=== PATIENT | female | born 1980 | race Caucasian/White ===

== ENCOUNTER 2022-02-25 00:14 | Emergency (ER) | payer BC, SELFPAY ==
[2022-02-25 00:34] VITALS: BP 144/87; PULSE 72; RESP 20; TEMP 35.8; O2SAT 100; BMI 26.2
--- NOTE | 2022-02-25 00:38 | PC.NURSE ---
Pt able to ambulate from triage without diff. SO at BS. t c/o of abd pain stretching to bilateral sides. Pt states she still has a gallbladder.
[2022-02-25] MEDS: FAMOTIDINE 20 MG TABLET PO (02:04)
--- NOTE | 2022-02-25 02:50 | ED.GENADULT ---
HPI - General Adult General Chief complaint: Chest Pain Stated complaint: Abdominal Pain Time Seen by Provider: 02/25/22 01:31 Source: patient Limitations: no limitations History of Present Illness HPI narrative: 11-year-old female presents with significant other because of abdominal pain in the epigastric region. It started at about 9:00 p.m., last meal was about 3 hours prior. She describes it is in he kind of full feeling that radiates up behind the sternum and a little bit wrapping around the bilateral sides of her abdomen. She has these episodes somewhat frequently, a few times per month but never this severe. They do tend to happen in the evenings. She has not tried any antacids or typical GI medications to help with her symptoms. She says that the ache was stronger and constant this evening, prompting her to come to the emergency department. Symptoms started about 2-1/2 hours prior to presentation. Not accompanied by fever, no nausea or vomiting. No diarrhea , but did have loose stools at the start of the episode. Bowels have been moving normally. No blood in her stools. No prior history of colonoscopy or endoscopy. She did recently complete a Z-Raffy for bronchitis, reports symptoms have improved. No prior history of pancreatitis or known gallbladder disease. No alcohol. Unfortunately, the emergency department was quite busy when she checked in it took me over an hour to get to see her. By this time, her symptoms have almost completely resolved. Past medical history is reported as benign, denies any significant long-term health problems. Reported history of intermittent asthma and heart problems. Does not sound like coronary artery disease or prior arrhythmia. She takes no long-term medications, denies any drug allergies. Socially she is a nonsmoker with no significant alcohol intake. No recent pertinent Travel. ROS is notable only for the GI symptoms as above, otherwise denies times 12 systems. Related Data Home Medications Medication Instructions Recorded Confirmed multivitamin 1 tab PO QDAY 08/13/21 02/25/22 ibuprofen 200 mg tablet (Advil) 400 mg PO Q6-8H PRN 02/25/22 02/25/22 Previous Rx's Medication Instructions Recorded albuterol sulfate 90 mcg/actuation 2 puff inhalation Q4-6H PRN 02/16/22 aerosol inhaler (Ventolin HFA) shortness of breath or wheezing #8.5 grams azithromycin 250 mg tablet See Rx Instructions PO .COMPLEX #6 02/16/22 tabs Allergies Allergy/AdvReac Type Severity Reaction Status Date / Time cat dander Allergy Unknown Verified 02/25/22 00:37 house dust Allergy Unknown Verified 02/25/22 00:37 [facility] Medical History Bronchitis Family history of diabetes during Family History Father Colorectal cancer Prostate cancer Paternal Grandfather Diabetes Social History Narrative: Does not drink alcohol Does not use illicit drugs Former smoker Smoking Status: Never smoker Do you use any of these nicotine containing products: None Second hand tobacco smoke exposure: No How often do you have a drink containing alcohol: never AUDIT-C Alcohol total score: 0 Non-prescribed substance use: denies use Little interest or pleasure in doing things: not at all Feeling down, depressed, or hopeless: not at all service: No Exam Const: Vital Signs, click to edit/add: Vital Signs - 24 hr 02/25/22 00:34 Temperature 96.5 F L Pulse Rate [Right Pulse Oximeter] 72 Respiratory Rate 20 Blood Pressure [Ri ght Upper Arm] 144/87 H Pulse Oximetry 100 Oxygen Delivery Me thod Room Air Documenting provider has reviewed patient's vital signs: yes Common normals: no apparent distress General appearance: cooperative, comfortable and well kempt HENMT: Common normals: normocephalic Head and scalp: normocephalic Mouth: oral and palatal mucosa normal Throat: posterior oropharynx normal Eye: Common normals: PERRL and conjunctivae normal Conjunctiva: conjunctiva(e) normal Pupil: PERRL Neck & C-Spine: Common normals: no lymphadenopathy Resp: Common normals: normal respiratory effort, no use of accessory muscles and clear to auscultation bilaterally Effort & inspection: able to speak in complete sentences Auscultation: clear to auscultation bilaterally Cardio: Common normals: regular rate, regular rhythm, S1 normal heart sound, S2 normal heart sound, no murmurs and peripheral pulses 2+ throughout Rate: regular rate Rhythm: regular rhythm Heart sounds: S1 normal and S2 normal Peripheral pulses: pulses 2+ throughout GI: Common normals: Normal to inspection, nondistended, normoactive bowel sounds present, soft to palpation, non-tender, no hepatosplenomegaly and no masses Palpation: soft and no hepatosplenomegaly Neuro: Speech: speech normal Motor exam: no tremor noted and no movement abnormalities noted Psych: Common normals: cooperative, affect normal and activity/motor behavior normal Appearance: well kempt Insight: insight good Judgement: judgment good Skin: Common normals: no rashes or lesions noted General skin exam: no rashes or lesions noted Course Vital Signs Vital signs: Initial Vital Signs Temperature 96.5 F L 02/25/22 00:34 Temperature Source Temporal Artery Scan 02/25/22 00:34 Pulse Rate 72 02/25/22 00:34 Pulse Rhythm 02/25/22 00:34 Respiratory Rate 20 02/25/22 00:34 Blood Pressure 144/87 H 02/25/22 00:34 Blood Pressure Mean 106 02/25/22 00:34 Blood Pressure Position Sitting 02/25/22 00:34 Pulse Oximetry 100 02/25/22 00:34 Oxygen Delivery Method 02/25/22 00:34 Vital Signs Temperature 96.5 F L 02/25/22 00:34 Pulse Rate 72 02/25/22 00:34 Respiratory Rate 20 02/25/22 00:34 Blood Pressure 144/87 H 02/25/22 00:34 Pulse Oximetry 100 02/25/22 00:34 Oxygen Delivery Method 02/25/22 00:34 Temperature 96.5 F L 02/25/22 00:34 Pulse Rate 72 02/25/22 00:34 Respiratory Rate 20 02/25/22 00:34 Blood Pressure 144/87 H 02/25/22 00:34 Pulse Oximetry 100 02/25/22 00:34 Oxygen Delivery Method 02/25/22 00:34 Medical Decision Making MDM Narrative Medical decision making narrative: Discussed differential diagnosis with patient. Suspect gastric reflux, hiatal hernia versus gallbladder disease like biliary dyskinesia and/or gallstones. Less suspicious for cholecystitis since her symptoms have improved so much. I recommended labs to look for any signs of transaminases or bilirubin elevation and pancreatic enzymes. Patient reports since she is feeling so much better she does not really want to wait for labs. We discussed the differential diagnosis and she is interested in pursuing a GERD and or hiatal hernia very. She accepted offer for famotidine. This is dosed 20 mg p.o. 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 If she has persistent symptoms, I would recommend labs, right upper quadrant ultrasound and if this is not revealing a HIDA scan. We discussed dietary changes and how this may be beneficial to help her narrow down her symptoms as well. She declines further workup at this time, and since I do not appreciate any signs of severe disease, this is certainly reasonable. Follow-up with primary care provider for symptoms are not improving in 3-4 days. EKG was performed and is reassuring with normal sinus rhythm per my interpretation normal axis, good R-wave progression, no ST or T-wave abnormalities, rate is 66. Discharge Plan Discharge Clinical Impression: Epigastric abdominal pain Patient Disposition: Home w/ Parent or Adult Condition: Improved Instructions: Epigastric Pain (ED) Additional Instructions: I am glad that the pain improved on its own. I understand that you do not want to stay for labs since you are feeling better, this is reasonable. I have given you a medication called famotidine, a common stomach acid medicine. This is available [id number] and I would like for you to purchase some and take 1 pill once daily, 30 minutes before meal. I would prefer that you take it before your evening meal. Avoid alcohol and all carbonated beverages for the next few weeks. If after taking this medicine for 4 weeks, you do not have any further spells, we can determine that this is likely from your stomach. You can then decide if he would like to stay on the medicine long-term, make the dietary changes that we discussed, or just treat the episodes episodically with Tums and famotidine when they come. This is most likely secondary to acid reflux and or a hiatal hernia. If your symptoms are not improving, I would strongly recommend further workup with her primary care provider and possibly an endoscopy. I had recommended doing labs because this could be a sign of gallstones or gallbladder disease. Since you are not tender, I know that it is not a gallbladder infection. But as we discussed, gallstones and biliary dyskinesia which is a malfunctioning gallbladder are much more common. I would not necessarily see these on ultrasound. Since her pain has resolved, I agree that waiting around several hours to have this done is probably not beneficial to you tonight. If you continue to have episodes that are not relieved by the famotidine, additional labs, ultrasound and or a HIDA scan would be recommended to look more closely at the gallbladder. Activity Level: No Restrictions Discharge Diet: Regular Prescriptions: No Action multivitamin Tablet 1 tab PO QDAY albuterol sulfate [Ventolin HFA] 90 mcg/actuation HFA aerosol inhaler 2 puff inhalation Q4-6H PRN (Reason: shortness of breath or wheezing) Qty: 8.5 0RF azithromycin 250 mg tablet See Rx Instructions PO .COMPLEX Qty: 6 0RF Rx Instructions: For 250 mg dose pack: take 500 mg today (day 1), then 250 mg for 4 days (days 2-5) PO ibuprofen [Advil] 200 mg tablet 400 mg PO Q6-8H PRN Follow Up/Referrals: Jaelyn Bright MD [Primary Care Provider] - Stand Alone Forms: [employer] Info Instructions
== END 2022-02-25 02:10 | disposition home or self-care (01) ==
PROVIDERS: Emergency Provider Family Medicine; PCP Family Medicine
DX: R10.13 Epigastric pain (principal)
CPT/HCPCS: 93005; 99283; 99284; A9270

== ENCOUNTER 2022-04-01 10:02 | Day surgery (SDC) | payer BC, SELFPAY ==
[2022-04-01] VITALS (19 sets, daily range): BP systolic 107–133; BP diastolic 63–81; PULSE 68–100; RESP 14–18; TEMP 36–37.2; O2SAT 94–100; BMI 26.0
--- NOTE | 2022-04-01 10:59 | CRLHL7_ITS ---
For Patients: As a result of the Century Cures Act, medical imaging exams and procedure reports are released immediately into your electronic medical record. You may view this report before your referring provider. If you have questions, please contact your health care provider. INDICATION: Epigastric pain for 1 month. TECHNIQUE: Ultrasound abdomen limited. Sonographic images of the right upper quadrant were obtained using sanchez-scale and color Doppler images. COMPARISON: None. FINDINGS: Liver: Normal in size and echotexture. No suspicious masses. No intrahepatic biliary dilatation. Gallbladder: Large stone at the gallbladder neck, measuring approximately 1 centimeter. Multiple small mobile stones and debris noted. Gallbladder wall thickening is noted measuring up to 4 millimeters. Negative sonographic Resendiz sign. Common bile duct: 3 mm. Pancreas: Unremarkable. Right kidney: Normal in size. Normal echotexture and cortex. No suspicious masses, stones, or hydronephrosis. Vasculature: Proximal abdominal aorta and IVC are unremarkable. IMPRESSION: Approximately 1 centimeter stone at the gallbladder neck. Although small mobile stones and debris within the gallbladder. Mildly thickened wall is noted. Constellation of findings are suspicious for cholecystitis. Correlate with clinical and laboratory findings. Dictated by Shanna Wright MD @ 04/01/2022 12:26:47 PM (Electronically Signed)
[2022-04-01 11:24] LABS: Lactate* 0.5 mmol/L (0.5-1.9)
[2022-04-01 11:30] LABS: Basophils Absolute Auto 0.02 K/uL (0.00-0.30); Basophils Percent Auto 0.2 % (0.0-3.0); Eosinophils Absolute Auto 0.06 K/uL (0.00-0.50); Eosinophils Percent Auto 0.7 % (0.0-7.0); Hematocrit 40.3 % (33.0-51.0); Hemoglobin* 13.9 gm/dL (12.0-16.0); Immature Granulocytes Abs Auto 0.01 K/uL (0.00-0.30); Immature Granulocytes Pct Auto 0.1 %; Lymphocytes Absolute Auto 1.81 K/uL (0.90-2.90); Lymphocytes Percent Auto 20.2 % (20-44); Mean Corpuscular HGB Conc 35 gm/dL (32-36); Mean Corpuscular Hemoglobin 31 pg (26-34); Mean Corpuscular Volume 90 fL (80-100); Monocytes Percent Auto 8.1 % (0.0-11.0); Neutrophils Absolute Auto 6.33 K/uL (1.7-7.0); Neutrophils Percent Auto 70.7 % (42.0-72.0); Platelet Count* 238 K/uL (140-440); RDW Coefficient of Variation % 12.2 % (11.5-15.5); Red Blood Count 4.49 m/uL (4.00-5.20); White Blood Count* 8.96 K/uL (4.50-11.00)
[2022-04-01 11:39] LABS: Slide Review Reflex No
[2022-04-01 11:41] LABS: Appearance Urine Clear (Clear); Bilirubin Urine Negative (Negative); Blood Urine Negative (Negative); Color Urine Yellow (Yellow); Glucose Urine Negative (Negative); Ketones Urine Negative (Negative); Leukocyte Esterase Urine Negative (Negative); Nitrite Urine Negative (Negative); Protein Urine Negative (Negative); Urobilinogen Urine 0.2 (0.2-1.0); pH Urine 5.5 (5.0-8.5)
[2022-04-01 11:49] LABS: Albumin* 4.8 g/dL (3.3-5.0)
[2022-04-01 11:50] LABS: Chloride* 108 mmol/L (96-114); Potassium* 3.8 mmol/L (3.6-5.1); Sodium* 140 mmol/L (135-149)
[2022-04-01 11:52] LABS: Creatinine* 0.5 mg/dL (0.5-1.5); Est. Creatinine Clearance* 118.29; Estimated Glomerular Filt Rate 122 ml/min
[2022-04-01 11:53] LABS: Alanine Aminotransferase* 26 U/L (4-35); Alkaline Phosphatase* 52 U/L (40-150); Aspartate Amino Transferase* 24 U/L (12-35); Bilirubin Direct* 0.1 mg/dL (0.0-0.5); Bilirubin Total* 0.7 mg/dL (0.1-1.5); Blood Urea Nitrogen* 9 mg/dL (5-24); Carbon Dioxide* 25 mmol/L (20-32); Glucose* 93 mg/dL (60-115); Total Protein* 8.1 g/dL (6.0-8.3)
[2022-04-01 11:54] LABS: Calcium* 9.2 mg/dL (8.4-10.6)
[2022-04-01 11:56] LABS: Lipase* 53 U/L (23-300)
[2022-04-01 12:05] LABS: C Reactive Protein* < 0.5 mg/dL (0.5-1.0)
[2022-04-01 12:20] LABS: RBC Urine 0-2 (0-2); Squamous Epithelial Cell Urine Few (None-Few); WBC Urine 0-2 (0-5)
--- NOTE | 2022-04-01 12:57 | ED_ITS ---
HPI - General Adult General Date Seen: 04/01/22 Chief complaint: Abdominal Pain Stated complaint: Abdominal pain Time Seen by Provider: 04/01/22 10:37 Source: patient Mode of arrival: ambulatory Limitations: no limitations History of Present Illness HPI narrative: Patient is a 42-year-old woman who presents for re-evaluation of abdominal pain. She was seen here on February 25 at that time had had some epigastric pain. Pain had resolved, and she elected not to have labs or ultrasound done at that time. She was started on ranitidine. She says that she has been using the ranitidine sporadically when she has symptoms, had thought it had been a little helpful. However, pain has been getting a little more significant. She often notes symptoms between 10 30 and 11:00 a.m. at night, and in the last week she has had some bouts of severe pain, which wake her from sleep. She has to get up and pace around, she often takes a hot shower as the warm water seems to help. She describes the pain as achy and pressure-like, it radiates around both sides and into her back. It is not positional, does not feel any better sitting up versus lying down, does not have a burning quality and she does not describe reflux type symptoms. She has not had any black or bloody stools, has not had any nausea or vomiting. She has developed some diarrhea and past week. She has not had a fever. Pain does not seem directly related to her diet at all, she has tried to rule minimize how much she eats in the evening but it has not seem to make any difference as to whether not she has pain. She had a bad episode of pain last night which resolved. She presented to clinic this morning and was referred here for further evaluation. Right now she has minimal to no pain. Related Data Home Medications Medication Instructions Recorded Confirmed multivitamin 1 tab PO QDAY 08/13/21 04/01/22 ibuprofen 200 mg tablet (Advil) 400 mg PO Q6-8H PRN 02/25/22 04/01/22 famotidine 10 mg tablet (Pepcid AC) 10 mg PO QDAY 04/01/22 04/01/22 Previous Rx's Medication Instructions Recorded albuterol sulfate 90 mcg/actuation 2 puff inhalation Q4-6H PRN 02/16/22 aerosol inhaler (Ventolin HFA) shortness of breath or wheezing #8.5 grams Allergies Allergy/AdvReac Type Severity Reaction Status Date / Time cat dander Allergy Unknown Verified 04/01/22 08:14 house dust Allergy Unknown Verified 04/01/22 08:14 Review of Systems Status of ROS: Reports: 10 or more systems reviewed and unremarkable except as noted in History and below [facility] Medical History Bronchitis Family history of diabetes during Family History (Updated 04/01/22 @ 13:40 by Silvia Tovar MD) Father Colorectal cancer Prostate cancer Paternal Grandfather Diabetes Social History (Updated 04/01/22 @ 13:40 by Silvia Tovar MD) Narrative: Does not drink alcohol Does not use illicit drugs Former smoker 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 In general, an alert, well-appearing patient. Appears comfortable. Head: Normocephalic, atraumatic. Eyes: Pupils are equal reactive. Extraocular movements are full. Conjunctivae are normal. ENT: Mucous membranes are moist. Neck: Supple without lymphadenopathy. Heart: Regular rate and rhythm. No murmur or rub. Lungs: Clear bilaterally. No increased work of breathing, crackles or wheezes. No CVA tenderness. Abdomen: Soft and nondistended, nontender to palpation including in the right upper quadrant. Negative Resendiz sign. Extremities: Well perfused. No edema. No calf tenderness. Pulses intact. Neurologic: Patient is alert and oriented to person and place. Speech is fluent. Face is symmetric. Moves all extremities equally. Affect: Normal. Skin: Warm and dry. Well perfused. Const: Vital Signs, click to edit/add: Vital Signs - 24 hr 04/01/22 10:06 Temperature 98.0 F Pulse Rate [Left P ulse Oximeter] 91 Respiratory Rate 16 Blood Pressure [Ri ght Upper Arm] 124/81 Pulse Oximetry 100 Oxygen Delivery Me thod Room Air Documenting provider has reviewed patient's vital signs: yes Course Course Hospital Course: Following initial evaluation, I looked with the bedside ultrasound, gallbladder wall did appear thickened about 4 mm and she had sludge versus small stones visible in the gallbladder fundus. I ordered a formal ultrasound as well as labs. She declined the need for anything for pain. She had an EKG which by my review showed a normal sinus rhythm, ventricular rate of [address] segment changes. Labs were entirely unremarkable. White count is normal at 9, hemoglobin 13.9, diff normal. Metabolic panel and LFTs are entirely within normal limits. CRP is less than 0.5. Lipase is 53. Urinalysis is negative, 0- 2 red cells and 0-2 white cells. Point of care troponin is 0. Formal radiology read of her right upper quadrant ultrasound shows a stone at the gallbladder neck, small mobile stones and debris in the gallbladder and the mildly thickened wall consistent with cholecystitis. I have discussed her case with Dr. Jeff was on-call for General surgery, she will consult on the patient in the emergency department. Plan is for cholecystectomy today. Vital Signs Vital signs: Initial Vital Signs Temperature 98.0 F 04/01/22 10:06 Temperature Source Temporal Artery Scan 04/01/22 10:06 Pulse Rate 91 04/01/22 10:06 Pulse Rhythm 04/01/22 10:06 Pulse Strength 3+ Normal 04/01/22 10:06 Respiratory Rate 16 04/01/22 10:06 Blood Pressure 124/81 04/01/22 10:06 Blood Pressure Mean 95 04/01/22 10:06 Blood Pressure Position Sitting 04/01/22 10:06 Pulse Oximetry 100 04/01/22 10:06 Oxygen Delivery Method 04/01/22 10:06 Vital Signs Temperature 98.0 F 04/01/22 10:06 Pulse Rate 91 04/01/22 10:06 Respiratory Rate 16 04/01/22 10:06 Blood Pressure 124/81 04/01/22 10:06 Pulse Oximetry 100 04/01/22 10:06 Oxygen Delivery Method 04/01/22 10:06 Temperature 98.0 F 04/01/22 10:06 Pulse Rate 91 04/01/22 10:06 Respiratory Rate 16 04/01/22 10:06 Blood Pressure 124/81 04/01/22 10:06 Pulse Oximetry 100 04/01/22 10:06 Oxygen Delivery Method 04/01/22 10:06 Medical Decision Making Lab Data Labs: Lab Results 04/01/22 04/01/22 04/01/22 Range/Units 11:00 11:00 11:13 WBC (4.50-11.00) K/uL RBC (4.00-5.20) m/uL Hgb (12.0-16.0) gm/dL Hct (33.0-51.0) % MCV (80-100) fL MCH (26-34) pg MCHC (32-36) gm/dL RDW Coeff of Jennifer (11.5-15.5) % Plt Count (140-440) K/uL Neut % (Auto) (42.0-72.0) % Lymph % (Auto) (20-44) % Woodson % (Auto) (0.0-11.0) % Eos % (Auto) (0.0-7.0) % Baso % (Auto) (0.0-3.0) % Neut # (Auto) (1.7-7.0) K/uL Lymph # (Auto) (0.90-2.90) K/uL Woodson # (Auto) (0.00-0.90) K/UL Eos # (Auto) (0.00-0.50) K/uL Baso # (Auto) (0.00-0.30) K/uL Sodium 140 (135-149) mmol/L Potassium 3.8 (3.6-5.1) mmol/L Chloride 108 (96-114) mmol/L Carbon Dioxide 25 (20-32) mmol/L BUN 9 (5-24) mg/dL Creatinine 0.5 (0.5-1.5) mg/dL Estimated Creat Clear 118.29 Estimated GFR 122 ml/min Glucose 93 (60-115) mg/dL Lactate (0.5-1.9) mmol/L Calcium 9.2 (8.4-10.6) mg/dL Total Bilirubin 0.7 (0.1-1.5) mg/dL Direct Bilirubin 0.1 (0.0-0.5) mg/dL AST 24 (12-35) U/L ALT 26 (4-35) U/L Alkaline Phosphatase 52 (40-150) U/L C-Reactive Protein (0.5-1.0) mg/dL Total Protein 8.1 (6.0-8.3) g/dL Albumin 4.8 (3.3-5.0) g/dL Lipase (23-300) U/L Urine Color Yellow (Yellow) Urine Appearance Clear (Clear) Urine pH 5.5 (5.0-8.5) Ur Specific Kathleen 1.010 (1.000-1.030) Urine Protein Negative (Negative) Urine Glucose (UA) Negative (Negative) Urine Ketones Negative (Negative) Urine Blood Negative (Negative) Urine Nitrite Negative (Negative) Urine Bilirubin Negative (Negative) Urine Urobilinogen 0.2 (0.2-1.0) Ur Leukocyte Esterase Negative (Negative) Urine RBC 0-2 (0-2) Urine WBC 0-2 (0-5) Ur Squamous Epith Cells Few (None-Few) Urine Bacteria None (None) SARS-CoV-2 (PCR) (Negative) POC Troponin I 0.00 L (0.01-0.04) ng/ml 04/01/22 04/01/22 04/01/22 Range/Units 11:13 11:13 11:13 WBC 8.96 (4.50-11.00) K/uL RBC 4.49 (4.00-5.20) m/uL Hgb 13.9 (12.0-16.0) gm/dL Hct 40.3 (33.0-51.0) % MCV 90 (80-100) fL MCH 31 (26-34) pg MCHC 35 (32-36) gm/dL RDW Coeff of Jennifer 12.2 (11.5-15.5) % Plt Count 238 (140-440) K/uL Neut % (Auto) 70.7 (42.0-72.0) % Lymph % (Auto) 20.2 (20-44) % Woodson % (Auto) 8.1 (0.0-11.0) % Eos % (Auto) 0.7 (0.0-7.0) % Baso % (Auto) 0.2 (0.0-3.0) % Neut # (Auto) 6.33 (1.7-7.0) K/uL Lymph # (Auto) 1.81 (0.90-2.90) K/uL Woodson # (Auto) 0.70 (0.00-0.90) K/UL Eos # (Auto) 0.06 (0.00-0.50) K/uL Baso # (Auto) 0.02 (0.00-0.30) K/uL Sodium (135-149) mmol/L Potassium (3.6-5.1) mmol/L Chloride (96-114) mmol/L Carbon Dioxide (20-32) mmol/L BUN (5-24) mg/dL Creatinine (0.5-1.5) mg/dL Estimated Creat Clear Estimated GFR ml/min Glucose (60-115) mg/dL Lactate 0.5 (0.5-1.9) mmol/L Calcium (8.4-10.6) mg/dL Total Bilirubin (0.1-1.5) mg/dL Direct Bilirubin (0.0-0.5) mg/dL AST (12-35) U/L ALT (4-35) U/L Alkaline Phosphatase (40-150) U/L C-Reactive Protein < 0.5 L (0.5-1.0) mg/dL Total Protein (6.0-8.3) g/dL Albumin (3.3-5.0) g/dL Lipase 53 (23-300) U/L Urine Color (Yellow) Urine Appearance (Clear) Urine pH (5.0-8.5) Ur Specific Kathleen (1.000-1.030) Urine Protein (Negative) Urine Glucose (UA) (Negative) Urine Ketones (Negative) Urine Blood (Negative) Urine Nitrite (Negative) Urine Bilirubin (Negative) Urine Urobilinogen (0.2-1.0) Ur Leukocyte Esterase (Negative) Urine RBC (0-2) Urine WBC (0-5) Ur Squamous Epith Cells (None-Few) Urine Bacteria (None) SARS-CoV-2 (PCR) (Negative) POC Troponin I (0.01-0.04) ng/ml 04/01/22 Range/Units 12:39 WBC (4.50-11.00) K/uL RBC (4.00-5.20) m/uL Hgb (12.0-16.0) gm/dL Hct (33.0-51.0) % MCV (80-100) fL MCH (26-34) pg MCHC (32-36) gm/dL RDW Coeff of Jennifer (11.5-15.5) % Plt Count (140-440) K/uL Neut % (Auto) (42.0-72.0) % Lymph % (Auto) (20-44) % Woodson % (Auto) (0.0-11.0) % Eos % (Auto) (0.0-7.0) % Baso % (Auto) (0.0-3.0) % Neut # (Auto) (1.7-7.0) K/uL Lymph # (Auto) (0.90-2.90) K/uL Woodson # (Auto) (0.00-0.90) K/UL Eos # (Auto) (0.00-0.50) K/uL Baso # (Auto) (0.00-0.30) K/uL Sodium (135-149) mmol/L Potassium (3.6-5.1) mmol/L Chloride (96-114) mmol/L Carbon Dioxide (20-32) mmol/L BUN (5-24) mg/dL Creatinine (0.5-1.5) mg/dL Estimated Creat Clear Estimated GFR ml/min Glucose (60-115) mg/dL Lactate (0.5-1.9) mmol/L Calcium (8.4-10.6) mg/dL Total Bilirubin (0.1-1.5) mg/dL Direct Bilirubin (0.0-0.5) mg/dL AST (12-35) U/L ALT (4-35) U/L Alkaline Phosphatase (40-150) U/L C-Reactive Protein (0.5-1.0) mg/dL Total Protein (6.0-8.3) g/dL Albumin (3.3-5.0) g/dL Lipase (23-300) U/L Urine Color (Yellow) Urine Appearance (Clear) Urine pH (5.0-8.5) Ur Specific Kathleen (1.000-1.030) Urine Protein (Negative) Urine Glucose (UA) (Negative) Urine Ketones (Negative) Urine Blood (Negative) Urine Nitrite (Negative) Urine Bilirubin (Negative) Urine Urobilinogen (0.2-1.0) Ur Leukocyte Esterase (Negative) Urine RBC (0-2) Urine WBC (0-5) Ur Squamous Epith Cells (None-Few) Urine Bacteria (None) SARS-CoV-2 (PCR) Negative SARS-CoV-2 (Negative) POC Troponin I (0.01-0.04) ng/ml Discharge Plan Discharge Clinical Impression: Cholecystitis Patient Disposition: Admitted As Inpatient Condition: Stable
[2022-04-01 13:24] LABS: SARS PCR* Negative SARS-CoV-2 (Negative)
--- NOTE | 2022-04-01 13:38 | P.GSHP_ITS ---
History of Present Illness History of Present Illness Date Seen: 04/01/22 Chief complaint: Abdominal pain Narrative: Sosa Arizmendi is a 42 year old female who presented to the emergency department today with recurrent episodes of epigastric pain. She states that approximately 1 month ago she had severe epigastric pain which wraps around her back. This came on in the middle the night. It woke her up and lasted for several hours. It was severe enough that she came into the emergency department. At that time because her pain improved no further workup was deemed necessary. She was told to take Pepcid and watch her diet and follow up with her primary if her symptoms continued. Since then she has had 2 additional episodes again with similar severe epigastric pain radiating around to her back. Both times she was woken up in the middle the night in the pain lasted several hours. She states that hot showers will help calm the pain and Pepcid will help somewhat, however nothing really takes the pain away or makes it worse other than time. She states that she had not eaten anything differently before the pain came on in particularly that she usually finishes eating by 630 every night. She does not have significant heartburn symptoms. She does not have any fevers. She has been short of breath with the pain but otherwise has no cough or respiratory symptoms. Last week she stated that her bowel movements have been looser than usual. She has not had nausea or vomiting. She feels that her pain now is significantly better than it was last evening. Because the pain last night was so severe she decided to come in for re-evaluation today. Review of Systems Status of ROS: Reports: 10 or more systems reviewed and unremarkable except as noted in History and below [facility] Medical History Bronchitis Family history of diabetes during Family History (Updated 04/01/22 @ 13:40 by Silvia Tovar MD) Father Colorectal cancer Prostate cancer Paternal Grandfather Diabetes Social History (Updated 04/01/22 @ 13:40 by Silvia Tovar MD) Narrative: Does not drink alcohol Does not use illicit drugs Former smoker She and her own a Prescription Eyewear Smoking Status: Never smoker Do you use any of these nicotine containing products: None Second hand tobacco smoke exposure: No How often do you have a drink containing alcohol: never AUDIT-C Alcohol total score: 0 Non-prescribed substance use: denies use Little interest or pleasure in doing things: not at all Feeling down, depressed, or hopeless: not at all service: No Meds Home Medications and Allergies Home Medications Medication Instructions Recorded Confirmed Type multivitamin 1 tab PO QDAY 08/13/21 04/01/22 History ibuprofen 200 mg tablet (Advil) 400 mg PO Q6-8H PRN 02/25/22 04/01/22 History famotidine 10 mg tablet (Pepcid AC) 10 mg PO QDAY 04/01/22 04/01/22 History Allergies Allergy/AdvReac Type Severity Reaction Status Date / Time cat dander Allergy Unknown Verified 04/01/22 08:14 house dust Allergy Unknown Verified 04/01/22 08:14 Exam Narrative: Exam Narrative: General appearance: Alert, cooperative, and in no distress Eyes: PERRLA, eye lids clear, and sclera white HENT Head: Normocephalic Ears: External ears normal Pulmonary: Clear to auscultation bilaterally Cardiovascular Heart: Regular rate and rhythm Extremities: warm and well perfused Gastrointestinal Abdominal: No scars. Soft. Tender to palpation in the epigastric region. Pain is worse with deep inspiration. This is mainly epigastric but slightly to the right of midline as well. No rebound or guarding. Musculoskeletal: Extremities: Upper: Both upper extremities have normal joint range of motion and intact strength. Lower: Both lower extremities have normal joint range of motion and intact strength. Skin: Normal skin color, texture, and turgor. No rashes or lesions. Neurologic: No focal deficits Psychiatric: Alert, oriented, cooperative, normal affect. Const: Vital Signs, click to edit/add: Vital Signs - 24 hr 04/01/22 10:06 Temperature 98.0 F Pulse Rate [Left P ulse Oximeter] 91 Respiratory Rate 16 Blood Pressure [Ri ght Upper Arm] 124/81 Pulse Oximetry 100 Oxygen Delivery Me thod Room Air Results Results Labs: White blood cell count is normal. CRP is undetectable. LFTs are within normal limits. Lipase is normal. UA is negative. Troponin is negative COVID is negative Abdominal ultrasound report/results: report reviewed and image reviewed Additional studies: Ultrasound of the abdomen done today: FINDINGS: Liver: Normal in size and echotexture.? No suspicious masses.? No intrahepatic biliary dilatation.? Gallbladder: Large stone at the gallbladder neck, measuring approximately 1 centimeter. Multiple small mobile stones and debris noted. Gallbladder wall thickening is noted measuring up to 4 millimeters. Negative sonographic Resendiz sign. Common bile duct: 3 mm.? Pancreas: Unremarkable.? Right kidney: Normal in size.? Normal echotexture and cortex.? No suspicious masses, stones, or hydronephrosis. Vasculature: Proximal abdominal aorta and IVC are unremarkable.? IMPRESSION: Approximately 1 centimeter stone at the gallbladder neck. Although small mobile stones and debris within the gallbladder. Mildly thickened wall is noted. Constellation of findings are suspicious for cholecystitis. Correlate with clinical and laboratory findings. Assessment and Plan Assessment and plan (1) Cholecystitis: Status: Acute Plan The patient is a 42-year-old female with likely acute cholecystitis. I explained that the treatment for this is laparoscopic cholecystectomy. We discussed the procedure as well as risks and benefits of surgery which include bleeding, infection, bile leak, conversion to open or injury to other structures, specifically the common bile duct. We also discussed recovery. She also asked about whether not was possible to avoid surgery. We discussed options of nonsurgical management, though I told her that likely her symptoms would continue to worsen given that it appears as though she has an obstructive type picture with inflammation. She was agreeable to proceed and signed informed consent. We will plan on surgery today pending OR availability.
[2022-04-01] MEDS: LACTATED RINGERS 1000 ML 1,000 ML 125 ML IV (13:40)
[2022-04-01] MEDS: CEFAZOLIN 2 GM INJ IVP (13:45)
--- NOTE | 2022-04-01 14:21 | W.ANESCHARGE ---
Anesthesia Charges Start Date/Time Anesthesia Start Date: 04/01/22 Anesthesia Start Time: 13:40 Stop Date/Time Anesthesia Stop Date: 04/01/22 Anesthesia Stop Time: 15:04 Summary Emergency: MDA
[2022-04-01] MEDS: BUPIVACAINE 0.25% 30 ML 15 ML INJECTION (14:41)
--- NOTE | 2022-04-01 15:01 | P.ANES_ITS ---
Anesthesia Charges Start Date/Time Anesthesia Start Date: 04/01/22 Anesthesia Start Time: 13:40 Stop Date/Time Anesthesia Stop Date: 04/01/22 Anesthesia Stop Time: 15:04 Summary Emergency: [employer]
--- NOTE | 2022-04-01 15:06 | P.GSOP_ITS ---
Operative Note Date of procedure: 04/01/22 Pre-op diagnosis: Acute cholecystitis Post-op diagnosis: Same Type of Procedure: Laparoscopic cholecystectomy Indications: The patient is a 42-year-old female who presented to the emergency department with severe epigastric pain. Workup revealed gallbladder wall thickening consistent with acute cholecystitis. After discussion of options she agreed to proceed with cholecystectomy. Procedure Description: After discussing the risks and benefits of the procedure, the patient signed informed consent.? The operative site was marked and the patient was brought to the operating room and placed on the operating table in supine position.? Care was taken to pad the patient's pressure points.?? The patient was then intubated by anesthesia.?? The operative site was then prepped and draped in the usual sterile fashion.? A time-out was then performed. Entrance to the abdomen was gained via a 5 mm Visiport in the left upper quadrant. The abdomen was insufflated and briefly surveyed for signs of injury. There was none. A 10 mm umbilical port was placed as well as 2 working ports along the right costal margin, all under direct vision. The patient was then placed in reverse Trendelenburg position with the right side up. The gallbladder fundus was grasped and retracted cephalad. A small amount of dissection was needed to free omental adhesions from the gallbladder. The infundibulum was grasped. A combination of hook cautery and blunt dissection was used to carefully dissect out the cystic duct and artery until they could clearly be seen entering the gallbladder without any intervening structures. The gallbladder was dissected off the cystic plate to achieve the critical view. Once this was achieved the cystic duct and artery were each clipped with 2 clips proximally and 1 clip distally and transected with the scissors. The gallbladder was then taken off of the liver bed and removed from the abdomen using an Endo- Catch bag. The gallbladder bed was surveyed for hemostasis which appeared adequate. The ports were then removed and the abdomen desufflated. The umbilical port fascia was closed with 0 Vicryl in a [id number] fashion. The skin was closed with absorbable subcuticular suture. ? Sterile dressings were then applied. ? Instrument sponge and needle counts were correct at the end of the case. The patient was then woken and transferred to the PACU in stable condition. The patient was then woken and transported to the recovery area in stable condition. ? The patient tolerated the procedure well. Findings: Gallbladder with omental adhesions and stones Anesthesia: GETA Surgeon: Silvia Tovar MD Estimated blood loss (mL): 5 Specimen: Gallbladder Condition: stable Disposition: PACU
[2022-04-01] MEDS: MEPERIDINE 25 MG/ML INJ 12.5 MG IVP (15:16)
[2022-04-01] MEDS: LACTATED RINGERS 1000 ML 1,000 ML 35 ML IV (15:47)
[2022-04-01] MEDS: ACETAMINOPHEN 325 MG TABLET 650 MG PO (17:14)
--- NOTE | 2022-04-01 19:27 | PC.NURSE ---
Addendum entered by Mariana Street RN 04/01/22 19:42: Pt stated she did not feel up to discharging home after moving around, IV remains in place and fluids infusing per order. called and notified, surgeon ok w/ pt staying and will place orders. Original Note: Pt alert and oriented, vitals stable. Tolerating diet and fluid intake. Up to void, no issues. at bedside. Pt to d/c this evening. IV removed prior to d/c.
[2022-04-02] MEDS: ACETAMINOPHEN 325 MG TABLET 650 MG PO (00:32)
[2022-04-02 00:36] VITALS: BP 121/69; PULSE 78; RESP 18; TEMP 36.9; O2SAT 100
--- NOTE | 2022-04-02 06:14 | PC.NURSE ---
Status [id number] Alert and oriented. Pleasant and cooperative. PRN tylenol given x1 for abdominal pain. VSS on room air. Up stand by. IV saline locked. Tolerating diet. Voiding without difficulty. Denies nausea. Lap sites have old bloody drainage present. Pt observed resting between cares. Plan to d/c today.
[2022-04-02 07:00] VITALS: PULSE 82; RESP 18
[2022-04-02 08:00] VITALS: BP 121/86; PULSE 82; RESP 18; TEMP 36.7; O2SAT 100
--- NOTE | 2022-04-02 09:25 | NUTR.NU ---
42 yo female preparing for discharge. Dx of cholecystitis. Met with pt to discuss diet. Pt has been making adjustments to her diet since February 25 when this started to be a problem. Reported initially some relief with low fat diet. Reviewed low fat and high fiber guidelines with pt. Verbalized understanding. No reinforcement needed.
[2022-04-02 09:34] VITALS: BP 120/66; PULSE 81; RESP 18; TEMP 36.7
--- NOTE | 2022-04-02 09:56 | P.DS_ITS ---
DS: Providers Provider Date Seen: 04/02/22 Primary care physician: Not a Local Provider Attending Physician on discharge: Silvia Tovar MD DS: Diagnosis Discharge Diagnosis (1) Cholecystitis: Status: Acute (2) S/P laparoscopic cholecystectomy: Status: Acute DS: Summary Hospital Course Hospital Course: The patient is a 42-year-old female who was admitted after cholecystectomy. She ended up staying overnight because of feeling tired and having some dizziness. On postop day 1 she was feeling well, tolerating a diet without nausea, ambulating and had pain control on Tylenol. She was deemed safe for discharge home. Time Spent with Patient Time attestation: Total time spent providing and/or coordinating discharge services: Exam Narrative: Exam Narrative: General: No acute distress Respiratory: Breathing nonlabored on room air CV: Regular rate and rhythm Abdomen: Soft, appropriately tender for postop state. Some blood staining on Steri-Strips however no erythema. Const: Vital Signs, click to edit/add: Vital Signs - 24 hr 04/01/22 10:06 04/01/22 15:00 04/01/22 15:05 Temperature 98.0 F 97.9 F Pulse Rate 83 100 Pulse Rate [Left P ulse Oximeter] 91 Respiratory Rate 16 16 16 Blood Pressure 125/63 123/80 Blood Pressure [Le ft Arm] Blood Pressure [Ri ght Upper Arm] 124/81 Pulse Oximetry 100 99 100 Oxygen Delivery Me thod Room Air Room Air 04/01/22 15:10 04/01/22 15:15 04/01/22 15:20 Temperature Pulse Rate 93 96 80 Pulse Rate [Left P ulse Oximeter] Respiratory Rate 14 16 16 Blood Pressure 133/74 126/80 127/80 Blood Pressure [Le ft Arm] Blood Pressure [Ri ght Upper Arm] Pulse Oximetry 96 94 98 Oxygen Delivery Me thod 04/01/22 15:25 04/01/22 15:29 04/01/22 15:48 Temperature 98.9 F 96.8 F L Pulse Rate 68 73 81 Pulse Rate [Left P ulse Oximeter] Respiratory Rate 16 14 16 Blood Pressure 121/74 120/66 Blood Pressure [Le ft Arm] 117/64 Blood Pressure [Ri ght Upper Arm] Pulse Oximetry 97 95 Oxygen Delivery Me thod Room Air 04/01/22 15:48 04/01/22 16:00 04/01/22 16:15 Temperature 96.8 F L 98.0 F 97.7 F Pulse Rate Pulse Rate [Left P ulse Oximeter] 81 90 Respiratory Rate 16 16 16 Blood Pressure Blood Pressure [Le ft Arm] 117/64 114/74 Blood Pressure [Ri ght Upper Arm] Pulse Oximetry 100 100 Oxygen Delivery Me thod Room Air Room Air Room Air 04/01/22 16:30 04/01/22 16:45 04/01/22 17:00 Temperature 98.0 F 97.5 F L 97.4 F L Pulse Rate Pulse Rate [Left P ulse Oximeter] 79 90 97 Respiratory Rate 16 16 16 Blood Pressure Blood Pressure [Le ft Arm] 107/64 110/70 107/70 Blood Pressure [Ri ght Upper Arm] Pulse Oximetry 100 99 100 Oxygen Delivery Me thod Room Air Room Air Room Air 04/01/22 17:30 04/01/22 18:30 04/01/22 20:15 Temperature 97.8 F 97.8 F 97.7 F Pulse Rate Pulse Rate [Left P ulse Oximeter] 94 94 76 Respiratory Rate 16 16 18 Blood Pressure Blood Pressure [Le ft Arm] 110/70 107/66 121/80 Blood Pressure [Ri ght Upper Arm] Pulse Oximetry 100 100 100 Oxygen Delivery Me thod Room Air Room Air Room Air 04/01/22 19:30 04/01/22 21:25 04/02/22 00:36 Temperature 97.7 F 98 F 98.5 F Pulse Rate Pulse Rate [Left P ulse Oximeter] 93 86 78 Respiratory Rate 16 16 18 Blood Pressure Blood Pressure [Le ft Arm] 123/76 117/70 121/69 Blood Pressure [Ri ght Upper Arm] Pulse Oximetry 100 100 100 Oxygen Delivery Me thod Room Air Room Air Room Air 04/02/22 07:00 04/02/22 08:00 04/02/22 09:34 Temperature 98.1 F 98.1 F Pulse Rate 81 Pulse Rate [Left P ulse Oximeter] 82 82 Respiratory Rate 18 18 18 Blood Pressure 120/66 Blood Pressure [Le ft Arm] 121/86 Blood Pressure [Ri ght Upper Arm] Pulse Oximetry 100 Oxygen Delivery Me thod Room Air DS: Data Data Completed and Pending Labs on day of discharge: Labs from last 24 hours 04/01/22 04/01/2204/01/23 12:39 11:13 11:13 WBC RBC Hgb Hct MCV MCH MCHC RDW Coeff of Jennifer Plt Count Neut % (Auto) Lymph % (Auto) [place] % (Auto) Eos % (Auto) Baso % (Auto) Neut # (Auto) Lymph # (Auto) [place] # (Auto) Eos # (Auto) Baso # (Auto) Sodium Potassium Chloride Carbon Dioxide BUN Creatinine Estimated Creat Clear Estimated GFR Glucose Lactate 0.5 Calcium Total Bilirubin Direct Bilirubin AST ALT Alkaline Phosphatase C-Reactive Protein < 0.5 L Total Protein Albumin Lipase 53 Urine Color Urine Appearance Urine pH Ur Specific [place] Urine Protein Urine Glucose (UA) Urine Ketones Urine Blood Urine Nitrite Urine Bilirubin Urine Urobilinogen Ur Leukocyte Esterase Urine RBC Urine WBC Ur Squamous Epith Cells Urine Bacteria SARS-CoV-2 (PCR) Negative SARS-CoV-2 POC Troponin I 04/01/22 04/01/22 04/01/22 11:13 11:13 11:00 WBC 8.96 RBC 4.49 Hgb 13.9 Hct 40.3 MCV 90 MCH 31 MCHC 35 RDW Coeff of Jennifer 12.2 Plt Count 238 Neut % (Auto) 70.7 Lymph % (Auto) 20.2 [place] % (Auto) 8.1 Eos % (Auto) 0.7 Baso % (Auto) 0.2 Neut # (Auto) 6.33 Lymph # (Auto) 1.81 [place] # (Auto) 0.70 Eos # (Auto) 0.06 Baso # (Auto) 0.02 Sodium 140 Potassium 3.8 Chloride 108 Carbon Dioxide 25 BUN 9 Creatinine 0.5 Estimated Creat Clear 118.29 Estimated GFR 122 Glucose 93 Lactate Calcium 9.2 Total Bilirubin 0.7 Direct Bilirubin 0.1 AST 24 ALT 26 Alkaline Phosphatase 52 C-Reactive Protein Total Protein 8.1 Albumin 4.8 Lipase Urine Color Urine Appearance Urine pH Ur Specific [place] Urine Protein Urine Glucose (UA) Urine Ketones Urine Blood Urine Nitrite Urine Bilirubin Urine Urobilinogen Ur Leukocyte Esterase Urine RBC Urine WBC Ur Squamous Epith Cells Urine Bacteria SARS-CoV-2 (PCR) POC Troponin I 0.00 L 04/01/22 11:00 WBC RBC Hgb Hct MCV MCH MCHC RDW Coeff of Jennifer Plt Count Neut % (Auto) Lymph % (Auto) [place] % (Auto) Eos % (Auto) Baso % (Auto) Neut # (Auto) Lymph # (Auto) [place] # (Auto) Eos # (Auto) Baso # (Auto) Sodium Potassium Chloride Carbon Dioxide BUN Creatinine Estimated Creat Clear Estimated GFR Glucose Lactate Calcium Total Bilirubin Direct Bilirubin AST ALT Alkaline Phosphatase C-Reactive Protein Total Protein Albumin Lipase Urine Color Yellow Urine Appearance Clear Urine pH 5.5 Ur Specific [place] 1.010 Urine Protein Negative Urine Glucose (UA) Negative Urine Ketones Negative Urine Blood Negative Urine Nitrite Negative Urine Bilirubin Negative Urine Urobilinogen 0.2 Ur Leukocyte Esterase Negative Urine RBC 0-2 Urine WBC 0-2 Ur Squamous Epith Cells Few Urine Bacteria None SARS-CoV-2 (PCR) POC Troponin I Discharge Plan Discharge Disposition: Home, Self-Care Discharging Surgeon: Silvia Tovar Follow-Up Appointment: 3-4 weeks Prescriptions: New hydrocodone-acetaminophen 5-325 mg Tablet 1 tab PO Q6H PRN (Reason: Pain) Qty: 15 0RF Continued multivitamin Tablet 1 tab PO QDAY albuterol sulfate [Ventolin HFA] 90 mcg/actuation HFA aerosol inhaler 2 puff inhalation Q4-6H PRN (Reason: shortness of breath or wheezing) Qty: 8.5 0RF famotidine [Pepcid AC] 10 mg tablet 10 mg PO QDAY Label Comments: before dinner ibuprofen [Advil] 200 mg tablet 400 mg PO Q6-8H PRN Activity Level: No strenuous activity Activity Detail: No lifting more than 20 lb for 2 weeks Discharge Diet: Regular Patient Instructions: General Anesthesia (DC), Post-Operative Instructions: Laparoscopic Cholecystectomy Additional Instructions: Wound care: Your sutures are under the skin and will dissolve over time. Leave steri strips (white bandages) over incisions until they fall off (or remove after 7 days). OK to shower tomorrow but avoid bathing, soaking or swimming for 2 weeks. Pat the incisions dry. No need to wash or scrub the area. Apply ice to the area as needed for swelling. It is also OK to use a heating pad if this provides more comfort to you. Pain control: You were prescribed a pain medication. This medication contains acetaminophen (Tylenol). If you are taking your prescribed pain pills 4 times daily, do not take additional acetaminophen. As your pain improves, you can try taking acetaminophen instead of the prescribed pain pill. It is ok to take Ibuprofen or Naproxen (per directions on packaging). This medication helps with inflammation and swelling. Take an [id number] stool softener while you are taking prescribed pain medications to help alleviate constipation. I recommend Senna and/or Colace. Take as directed on package. If you have not had a bowel movement in 3 days, try taking Miralax as directed on the package. All of these are available over the counter. Follow-up Follow up with Dr. Tovar in 2-3 weeks Please call if you are experiencing severe pain, nausea, vomiting, difficulty urinating, fever or have not had bowel movement in 4 days after surgery. Forms: Attune Info Instructions Follow-up: Silvia Tovar MD [Staff Physician] - 05/03/22 1:00 pm ([facility] ) Provider,Not a Local [Primary Care Provider] - Discharge Orders: Discharge Order (Routine); Ordered 04/02/22 Ordered By: Silvia Tovar
--- NOTE | 2022-04-02 10:34 | PC.NURSE ---
Discharge: Pt. alert and oriented x4. up to chair for meals, tolerating a reg diet, denies any N/V/SOB and rates her pain 2/10. Pt. has four lap sites covered in steri strips, old dried blood around some of them. Pt. discharged today at 1005, accompanied by spouse, ambulated to their waiting car. Pt's. IV removed intact. Discharge instructions given and forms signed, pt. verbalized understanding of instructions.
== END 2022-04-02 10:05 | disposition home or self-care (01) ==
LOC: ED 13:17 → SS 13:34 → MEDSURG 16:08
PROVIDERS: Emergency Provider Emergency Medicine; Visit Provider Surgery
PROC: 0FT44ZZ Resection of Gallbladder, Percutaneous Endoscopic Approach (ICD-10-PCS; CPT 47562; principal; 2022-04-01 13:30)
DX: K80.00 Calculus of gallbladder with acute cholecystitis without obstruction (principal); K82.8 Other specified diseases of gallbladder; R42 Dizziness and giddiness
CPT/HCPCS: 47562; 00790; 36415; 76705; 80048; 80076; 81001; 83605; 83690; 84484; 85025; 86140; 87635; 88304; 93005; 99140; 99284; 99285; A9270; J0330; J0690; J1100; J1170; J2175; J2250; J2405; J2704; J2765; J3010; J3490; J7120

== ENCOUNTER 2022-12-14 09:54 | Outpatient (CLI) | payer BC, SELFPAY ==
--- NOTE | 2022-12-14 10:00 | CRLHL7_ITS ---
For Patients: As a result of the Century Cures Act, medical imaging exams and procedure reports are released immediately into your electronic medical record. You may view this report before your referring provider. If you have questions, please contact your health care provider. BILATERAL SCREENING MAMMOGRAM WITH COMPUTER-AIDED DETECTION AND TOMOSYNTHESIS TECHNIQUE: CC and MLO views were obtained. These mammographic images have been obtained using full-field digital technique. These mammographic images were interpreted with the benefit of computer-aided detection. Breast Tomosynthesis was used in this interpretation. COMPARISON FILM: Baseline. FINDINGS: There are scattered areas of fibroglandular density IMPRESSION: There is no radiographic evidence for malignancy. ASSESSMENT: BI-RADS Category 1: Negative RECOMMENDATION: Routine screening mammogram in 1 year. A lay language report of this examination will be provided to the patient. Addi Pulido M.D. Diagnostic Radiologist [email or web address] MOUSTAPHA/Dictated by: Addi Pulido MD @ 12/14/2022 1:01:00 PM (Electronically Signed)
== END 2022-12-14 09:55 | disposition home or self-care (01) ==
LOC: MAMMO 09:55
PROVIDERS: Visit Provider Registered Nurse
DX: Z12.31 Encounter for screening mammogram for malignant neoplasm of breast (principal)
CPT/HCPCS: 77063; 77067

== ENCOUNTER 2023-10-13 08:38 | Outpatient (CLI) | payer BC, SELFPAY | END 2023-10-13 08:39 | disposition home or self-care (01) | LOC: FRMREF 08:38 | PROVIDERS: Visit Provider Registered Nurse | DX: Z13.220 Encounter for screening for lipoid disorders (principal); Z12.4 Encounter for screening for malignant neoplasm of cervix | CPT/HCPCS: 80061; 87624 ==